=== PATIENT | female | born 1950 | race Caucasian/White ===

== ENCOUNTER 2022-08-14 07:53 | Day surgery (SDC) | payer MEDICARE, BC ==
[2022-08-14] MEDS ORDERED: Lidocaine 2% 5 ML SDV INJECT ONE (07:54)
[2022-08-14] MEDS ORDERED: Glycopyrrolate 0.2 MG/ML 5 ML MDV IV ONE (07:54)
[2022-08-14] MEDS ORDERED: Propofol 200 MG/20 ML SDV IV ONE (07:54)
[2022-08-14] MEDS: Lactated Ringers 1,000 ML IV SCH (08:00)
[2022-08-14] MEDS ORDERED: Sodium Chloride 0.9% 10 ML Syringe FLUSH PRN (08:00)
[2022-08-14] MEDS: Simethicone Drops 40 MG/0.6 ML 30 ML Bottle PO ONE (09:38)
== END 2022-08-14 11:50 | disposition home or self-care (01) ==
LOC: FB.SDS 07:53
PROVIDERS: ATTEND Surgery
DX: Z12.11 Encounter for screening for malignant neoplasm of colon (principal); K63.5 Polyp of colon; K57.30 Diverticulosis of large intestine without perforation or abscess without bleeding; K58.9 Irritable bowel syndrome, unspecified; E78.5 Hyperlipidemia, unspecified; M19.90 Unspecified osteoarthritis, unspecified site; M85.80 Other specified disorders of bone density and structure, unspecified site; Z86.010 Personal history of colon polyps; Z83.71 Family history of colonic polyps; Z79.899 Other long term (current) drug therapy
CPT/HCPCS: 00811; A9270; G0105; J2704; J3490; J7120

== ENCOUNTER 2024-07-27 08:40 | Emergency (ER) | payer MEDICARE, BC ==
[2024-07-27] MEDS ORDERED: Sodium Chloride 0.9% 10 ML Syringe FLUSH PRN (09:09)
[2024-07-27] MEDS: Aspirin 81 MG Tab.Chew PO ONE (09:15)
[2024-07-27 09:25] LABS: BASOPHILS PERCENT AUTO 0.5 % (0.2-1.5); BLOOD UREA NITROGEN,BUN 14 mg/dL (7-18); BUN/CREATININE RATIO 15.6 (9-20); CARBON DIOXIDE,CO2 28 mmol/L (21-32); CHLORIDE,CL 101 mmol/L (100-110); CREATININE 0.9 mg/dL (0.55-1.02); EOSINOPHILS ABSOLUTE AUTO 0.1 x10-3/uL (0.0-0.8); EOSINOPHILS PERCENT AUTO 0.9 % (0.6-8.1); EST CRCL DRUG DOSING (CG) 52.89 mL/min; ESTIMATED GFR 68 mL/min (>60); GLUCOSE RANDOM 102 mg/dL (80-116); HEMATOCRIT 40.3 % (34.2-48.2); HEMOGLOBIN 13.8 g/dL (11.4-15.5); LYMPHOCYTES PERCENT AUTO 14.4 % (18.4-52.1); MEAN CORPUSCULAR HEMOGLOBIN 33.5 pg (23.9-33.9); MEAN CORPUSCULAR HGB CONC 34.2 g/dL (31.9-34.8); MEAN CORPUSCULAR VOLUME 97.9 fL (76.7-100.5); MEAN PLATELET VOLUME 8.2 fL (7.1-12.4); MONOCYTES ABSOLUTE AUTO 0.6 x10-3/uL (0.3-1.0); MONOCYTES PERCENT AUTO 9.3 % (4.4-15.7); NEUTROPHILS PERCENT AUTO 74.9 % (30.8-76.2); PLATELET COUNT,PLT 241 x10(3)uL (151-488); POTASSIUM,K 4.1 mmol/L (3.5-5.3); RED BLOOD CELL COUNT 4.11 x10(6)uL (3.60-5.20); RED CELL DISTRIBUTION WIDTH 13.8 % (12.3-16.5); SODIUM,NA 139 mmol/L (135-145); WHITE BLOOD CELL COUNT,WBC 6.6 x10-3/uL (3.0-10.3)
[2024-07-27 09:31] LABS: ALANINE AMINOTRANSFERASE,ALT 36 U/L (12-36); ALBUMIN 3.9 g/dL (3.2-4.6); ALKALINE PHOSPHATASE 97 IU/L (56-112); ASPARTATE AMNIOTRANSFERASE,AST 34 IU/L (5-25); PROTEIN TOTAL,TP 7.7 g/dL (6.0-8.0)
[2024-07-27] MEDS: Sodium Chloride 0.9% 1,000 ML IV SCH (09:31)
[2024-07-27] MEDS: Nitroglycerin 0.4 MG Tab.SL SL PRN (09:32)
[2024-07-27] MEDS: Iopamidol 755 Mg/ML 100 ML Bottle IV SCH (10:09)
== END 2024-07-27 12:32 | disposition home or self-care (01) ==
LOC: FB.ED 08:40
DX: R07.89 Other chest pain (principal); E78.00 Pure hypercholesterolemia, unspecified; E66.9 Obesity, unspecified; Z79.899 Other long term (current) drug therapy; Z68.29 Body mass index [BMI] 29.0-29.9, adult
CPT/HCPCS: 36415; 71275; 80053; 83735; 84484; 85025; 85379; 93005; 99285; A9270; J7030; Q9967; 93010; 99284